=== PATIENT | female | born 1945 | race Caucasian/White ===

== ENCOUNTER 2019-11-15 12:23 | Outpatient (CLI) | payer MEDICARE, OTHER, SELFPAY ==
--- NOTE | 2019-11-15 12:41 | CT_ITS ---
WS: [id number] CT ABDOMEN AND PELVIS WITH CONTRAST HISTORY: ACUTE DIVERTICULITIS TECHNIQUE: Imaging performed of the abdomen and pelvis with IV contrast. Single phase imaging of the abdomen. Coronal and sagittal reformats are submitted. All CT scans at [facility] use at least one of these dose optimization techniques: automated exposure control; mA and/or kV adjustment per patient size (includes targeted exams where dose is matched to clinical indication); or iterativ e reconstruction. IV CONTRAST: Omnipaque 300; 95 mL IV. Oral contrast: Yes. DLP: 1113.55 mGy.cm COMPARISON: 11/19/2015 Lower thorax: New small bilateral pleural effusions and mild haziness in the lower lung gao. Moder ately enlarged RIGHT heart chambers. LEFT atrial enlargement is also present. No pericardial effusion . Moderate size hiatal hernia. Liver/biliary system: Diffuse decreased attenuation throughout the liver. There is mild tricuspid reg urgitation into hepatic veins. Gallbladder: Contracted gallbladder. No stones identified. No bile duct dilatation. Pancreas: Mild atrophy of the pancreas. Spleen: Normal. Adrenal glands: Normal. Right kidney: Normal. Left kidney: Exophytic cyst from the upper pole measures 3.0 x 3.9 cm. No solid mass or obstruction. Aorta: Normal. Lymphadenopathy: None. Free fluid: None. GI tract: The appendix is normal. Numerous diverticula in the descending and sigmoid colon. There inga e very mild circumferential wall thickening throughout the colon in the region of the diverticula. Th ere is no significant inflammation to suggest an acute process. Abdominal wall: Unremarkable abdominal wall. No hernia. Pelvis: Beam hardening artifact through the pelvis secondary to the patient's RIGHT hip arthroplasty. No free fluid or adenopathy identified. Bones: Increase in lumbar lordosis. No osteoblastic or osteolytic bone disease. Moderate degenerative changes at the LEFT hip joint. Sclerosis and subchondral cystic changes on both sides of the joint. CT/CT abdomen pelvis w con* [id number] IMPRESSION: 1. Descending and sigmoid diverticulosis. No evidence for acute diverticulitis at this time. No abscess or acute inflammation. There is some very mild wall t hickening which is probably related to chronic diverticulosis. 2. Normal appendix. 3. Enlarged RIGHT heart and mild tricuspid regurgitation. 4. Small hiatal hernia. 5. New small bilateral pleural effusions. May be related to RIGHT heart failur e.
[2019-11-15 13:34] LABS: Blood Urea Nitrogen 9 mg/dL (8-23)
[2019-11-15] MEDS: iohexol 300 mg/mL 100 mL Btl IV (14:29)
[2019-11-15] MEDS: iohexol 300 mg/mL 50 mL Btl PO (14:30)
== END 2019-11-15 12:24 | disposition home or self-care (01) ==
LOC: RAD 12:37
PROVIDERS: Family Provider Family Medicine; PCP Family Medicine; Visit Provider Family Medicine
DX: K57.92 Diverticulitis of intestine, part unspecified, without perforation or abscess without bleeding (principal); I07.1 Rheumatic tricuspid insufficiency; K44.9 Diaphragmatic hernia without obstruction or gangrene; J90 Pleural effusion, not elsewhere classified
CPT/HCPCS: 36415; 74177; 82565; 84520

== ENCOUNTER → 2020-02-14 08:41 | Outpatient (BNVA) | payer MEDICARE, OTHER, SELFPAY | PROVIDERS: Family Provider Family Medicine; PCP Family Medicine; Visit Provider Orthopaedic Surgery | DX: M25.552 Pain in left hip (principal); M16.12 Unilateral primary osteoarthritis, left hip; Z96.641 Presence of right artificial hip joint | CPT/HCPCS: 73502 ==

== ENCOUNTER 2020-03-14 12:00 | Inpatient (IN) | payer MEDICARE, OTHER, SELFPAY ==
[2020-03-04 11:56] VITALS: BMI 28.8
--- NOTE | 2020-03-04 13:01 | ANES.PREANE2 ---
Pre-Anesthetic Assessment Pre-Anesthetic Assessment: Height/Weight: Height 1.75 m Weight 88.451 kg Proposed Procedure: Operation Date: 03/14/20 11:10 Proposed Procedures p Anterior Total Hip Arthroplasty(Left) - Madhu Estes DO Social: Social History: No alcohol and No tobacco Exam: Pre-Anes Outpt Exam: alert, oriented x 3 and clear to auscultation bilaterally Additional Exam Findings (including area of procedure): afib Airway: Submandibular: WNL Cervical ROM: WNL MP: 2 Dentition: Other (teeth ok) History/ROS: No significant history except as noted Pulmonary: Pulmonary: None reported CV/HEM: CV/HEM: Afib and HTN : : None reported Hepatic: Hepatic: None reported GI: GI: GERD (occ) Metabolic: Metabolic: Thyroid Musc/skel: Musc/skel: OA/DJD Neuropsych: Neuropsych: None reported Anesthetic Plan: ASA status: 3 Anesthesia: Anesthesia Evaluation and General Risk of > 500 ml blood loss (7ml/kg in children): Yes, adequate IV access and fluids planned PFSH Anesthesia PFSH: Medical History Atrial fibrillation Hypertension Hypothyroidism Primary osteoarthritis of left hip Surgical History History of total right hip arthroplasty Family History Mother CAD (coronary artery disease) Hyperlipidemia Hypertension Brother Cancer Father Hypertension Denies family history of Diabetes Clotting disorder Dementia Psychiatric illness Chronic kidney disease (CKD) Suicide Anesthesia complication Bleeding disorder Family history of premature coronary artery disease Lung disease Stroke Data Anesthesia Cardiac Studies: No Data to Display
[2020-03-04 13:07] LABS: Add Urine Microscopic? NO
[2020-03-04 13:18] LABS: Basophils # 0.1 10^3/uL (0.0-0.1); Basophils % 1.3 %; Eosinophils # 0.1 10^3/uL (0.0-0.8); Eosinophils % 3.6 %; Hemoglobin 13.4 g/dL (11.5-15.3); Lymphocytes # 1.1 10^3/uL (0.8-4.8); Lymphocytes % 28.9 %; Mean Corpuscular HGB Conc 31.9 g/dL (30.0-36.0); Mean Corpuscular Hemoglobin 29.4 pg (28.0-34.0); Mean Corpuscular Volume 92.1 fL (81-99); Mean Platelet Volume 10.2 fL (7.4-10.4); Monocytes # 0.4 10^3/uL (0.2-0.9); Monocytes % 9.6 %; Neutrophils # 2.2 10^3/uL (1.8-7.7); Neutrophils % 56.3 %; Nucleated Red Blood Cells % 0 %; Platelet Count 205 10^3/cmm (130-400); Red Blood Count 4.56 10^6/uL (4.1-5.3); Red Cell Distribution Width 13.6 % (12.1-15.1); White Blood Count 3.9 10^3/uL (4.0-10.0)
[2020-03-04 13:23] LABS: Bilirubin Urine Neg (NEGATIVE); Blood Urine Neg (Negative); Glucose Urine UA Norm (Normal); Ketones Urine Negative (Negative); Leukocyte Esterase Urine Negative (Negative); Nitrate Urine Negative (Negative); Protein Urine Neg (Negative); Specific Gravity, Urine 1.005 (1.005-1.030); Urine Appearance Clear (CLEAR); Urine Color Straw (Yellow); Urobilinogen Urine Norm (Negative); pH Urine 7 (5-7)
[2020-03-04 13:26] LABS: INR 1.13 (0.8-1.2); Partial Thromboplastin Time 31.2 SECONDS (23.9-36.7)
[2020-03-04 13:33] LABS: Alanine Aminotransferase 19 U/L (0-33); Albumin Level 4.2 g/dL (3.5-5.2); Alkaline Phosphatase 93 IU/L (35-105); Anion Gap 16.2 (5-19); Aspartate Amino Transferase 24 U/L (0-32); Blood Urea Nitrogen 6 mg/dL (8-23); Calcium 9.2 mg/dL (8.5-10.5); Carbon Dioxide 22 mmol/L (22-29); Chloride 103 mmol/L (98-107); Glucose 92 mg/dL (65-115); Osmolality Calculated 279 mOsm/kg (285-295); Potassium 4.2 mmol/L (3.5-5.1); Sodium 137 mmol/L (136-145); Total Bilirubin 0.4 mg/dL (0.15-1.2); Total Protein 7.2 g/dL (6.6-8.7)
[2020-03-14] VITALS (19 sets, daily range): BP systolic 103–160; BP diastolic 59–96; PULSE 85–104; RESP 14–20; TEMP 35.7–36.7; O2SAT 94–100
--- NOTE | 2020-03-14 | XRR_ITS ---
PROCEDURE INFORMATION: Exam: XR Left Hip with Pelvis when Performed fluoroscopic images x2 Exam date and time: 03/14/2020 1:40 PM Age: 74 years old Clinical indication: Condition or disease; Joint replacement status; Left; Prior surgery; Surgery type: Thr; Additional info: Orif hip TECHNIQUE: Imaging protocol: XR Left hip with pelvis when performed. Fluoroscopic images x2 Views: 2 or 3 views. COMPARISON: CR XR hip LT 2-3V wo/w pel* [id number] 02/14/2020 8:45 AM FINDINGS: Bones/joints: Two fluoroscopic images demonstrate total hip arthroplasty without acute fracture or dislocation. Postoperative changes in the soft tissues. Soft tissues: See Bones/joints finding. XR/XR hip LT 2-3V wo/w pel* [id number] IMPRESSION: Two fluoroscopic images demonstrate total hip arthroplasty without acute fracture or dislocation. Postoperative changes in the soft tissues. DLP(mGy): 6.23. Fluoroscopic time 48.9 seconds.
--- NOTE | 2020-03-14 | SCC_ITS ---
Procedure Done: Left total thip arthroplasty via direct anterior approach 48.9 seconds of fluoroscopic guidance, for a cumulative dose of 6.23 mGy, was provided to Dr. Estes by the radiology department. C-arm images of the LEFT hip were saved for the patient's permanent record. SHREYAS
[2020-03-14] MEDS: sodium chloride 0.9% 1,000 ML 30 ML IV (07:05)
[2020-03-14] MEDS: gabapentin 300 mg Capsule PO (07:06)
[2020-03-14] MEDS: CELEcoxib 200 mg Capsule 400 MG PO (07:06)
--- NOTE | 2020-03-14 07:20 | W.PM.OPSUD ---
Surgery/Procedure H&P Update DATE OF PROCEDURE: March 14, 2020 DATE H&P PERFORMED: 02/14/20 H&P UPDATE INFORMATION: I have reviewed H&P completed within last 30 days and I have examined patient prior to procedure PREOP DIAGNOSIS: DJD left hip PRIMARY INDICATION FOR PROCEDURE: symptomatic djd left hip PLANNED PROCEDURE: Operation Date: 03/14/20 08:00 Proposed Procedures p Anterior Total Hip Arthroplasty(Left) - Madhu Estes DO
--- NOTE | 2020-03-14 07:22 | P.OP_ITS ---
Operative Report Date of procedure: March 14, 2020 Pre-op Diagnosis: DJD left hip Post-op diagnosis: same Post-op Findings: satisfactory placement of implants w/o apparent complication Procedure Done: Left total hip arthroplasty via direct anterior approach Specimens removed/disposition: left femoral head and neck Surgeon: Madhu Estes Anesthesia: General Estimated blood loss (mL): 500 IV fluids (mL): 1,300 Urine output (mL): 600 Complications: none Findings: Advanced DJD left hip Condition: stable Disposition: PACU Brief History: 74 year old white female with progressive disabling left hip pain due to degenerative arthritis. At this time she's failed conservative treatment. She is attended the [facility] joint class. All of her questions and concerns were answered. She is aware the risks of total hip art hroplasty surgery include aren't limited to: Infection, limb length inequality, instability of hip, loosening about prosthesis, failure to relieve all pain, nerve/blood vessel/tendon injury, potential for fractures about the prosthesis that could lead to need for revision surgery. Medical complications can include blood clots, heart attack, stroke and risks up to and including . Potential need for transfusion of blood products during or after surgery and associated risks were discussed. All questions are answered patient agreeable to proceed with surgery. Procedure: 1.5 g vancomycin 2 g ancef Spike implants Accolade 2 C 132? neck angle hip stem size 6 2 packages of low-viscosity cement with tobramycin Biolox delta ceramic femoral head 36 mm outer diameter 0 mm neck length Trident X30 degree polyethylene insert for code E 0 egree Trident to trititanium cluster hole acetabular shell 56 mm outer diameter alpha code E 6.5 mm low-profile torx screw 6.5 mm x 30 mm Patient identified. Surgical site signed. Surgical permit signed. Patient received 1.5 g Vancomycin and 2 g of Ancef IV for surgical prophylaxis. She was taken to the operating room. She was placed under general anesthesia. She was then transferred to the Flanagan table and positioned for left hip surgery via direct anterior approach. The patient was then sterilely prepped and draped usual fashion. She received 1 g of TXA intravenously for hemostasis. A 12 cm skin incision was made with a #10 blade 2 fingerbreadths lateral to and 2 fingerbreadths distal to the anterior superior iliac spine. Full-thickness skin flaps were made down to the level of the fascia overlying the tensor fascia emily muscle. Skin edge bleeders were coagulated with electrocautery. Using electrocautery the fascia overlying the tensor fascia emily muscle was incised and with finger dissection the plane between the tensor fascia emily muscle and the sartorius muscle superficially and the tensor fascia emily and the rectus femoris muscle deeply was developed retractors were placed about the superior and inferior aspects of the joint capsule about the femoral neck. Circumflex vessels were identified and coagulated with electrocautery and then divided with electrocautery. Using a deep knife a Z-shaped capsular incision was made beginning superior and laterally on the femoral head, then obliquely in the midline of the femoral neck and then medially about the base of the femoral neck. Anterior capsulectomy was performed after further releases were performed medially and laterally about the base of the femoral neck. An oscillating saw was used cut the femoral neck. The femoral head was removed using a T-handle corkscrew the femoral head was removed. The femoral head was sized at approximately 55 mm in diameter. Labral tissue was removed using a deep knife and a Rongeur was used to remove remnants of the ligamentum teres. The acetabulum was reamed up to a size 56 reamer using fluoroscopic assistance. A 56 mm acetabular shell was inserted and impacted into place using fluoroscopy to insert the cup at approximately with 40 degrees of hip abduction and 10 degrees of anteversion. The cup was additionally was secured with a 6.5 x 30 mm cancellous screw. The 56mm polyethylene liner with 36 mm inner diameter was inserted and impacted into position. The femur was now prepared by repositioning the limb and extension, adduction and external rotation using the spar of the Flanagan table. Retractors were placed about the proximal femur. Soft tissue releases about the proximal femur were performed circumferentially. A hook was then attached to the Flanagan table and the femur was elevated within the wound. The cut surface of the femur was then prepared with a motorized bur followed by a rat tail rasp. We began with the starter broach and up to a size 6 broach. calcar planing was then performed. We then placed a standard offset neck with a trial 36 mm diameter head with a +0 mm neck offset.Fluoroscopic imaging showed that the left hip was equal to the right hip with equal offset compared to the opposite operated hip. The hip was dislocated and trial components were removed. Cement was mixed. A distal cement restrictor was placed. The femoral canal was filled with cement. The actual size 6 stem was then inserted and the cement allowed to harden. a repeat trial reduction was perf with the actual cemented stem and placed with a standard offset neck. Once again offset and limb length were templated and found and the actual ceramic head was applied and impacted in position Fluoroscopic images demonstrated that the hip was reduced and no apparent complications such as fracture were observed. The wound was irrigated with Betadine-containing saline and antibiotic containing saline solution. FloSeal was placed in the wound for hemostasis. Vancomycin powder 1 g was placed in the wound for additional antimicrobial prophylaxis. A large Hemovac drain was placed from inside out. The patient received 1 g of TXA iintravenously for additional hemostasis The fascia of the tensor fascia emily muscle was then closed with a combination of interrupted #2 permanent sutures along with a barbed suture. The skin was closed in layers with the ultimate layer being a running Monocryl subcuticular suture followed by Steri-Strips and Dermabond on skin. Sterile dressings were applied. The patient was then aroused from general anesthesia and transferred to the recovery room in stable and satisfactory condition. At the end of the surgical procedure all counts were correct. The patient tolerated the procedure well.
--- NOTE | 2020-03-14 09:01 | SUR.OPER ---
called and updated on surgical progress.
--- NOTE | 2020-03-14 10:13 | SUR.OPER ---
03/14/20 1005 called and updated on surgical progress.
[2020-03-14] MEDS: vancomycin 1,000 MG SDV 1000 MG XX (10:26)
[2020-03-14] MEDS: neomycin-poly-bacitracin oint 28 gm 1 APPLIC TOPICAL (10:33)
--- NOTE | 2020-03-14 11:15 | XRR_ITS ---
PROCEDURE INFORMATION: Exam: XR Left Hip with Pelvis when Performed Exam date and time: 03/14/2020 11:54 AM Age: 74 years old Clinical indication: Condition or disease; Joint replacement status; Prior surgery; Surgery date: Post-operative (0-2 days); Surgery type: Post op left thr TECHNIQUE: Imaging protocol: XR Left hip with pelvis when performed. Views: 2 or 3 views. COMPARISON: CR XR hip LT 2-3V wo/w pel* [id number] 02/14/2020 8:45 AM FINDINGS: Bones/joints: Hip arthroplasty without evidence of acute fracture or dislocation. No paralleling lucencies. Soft tissues: Postoperative changes in the soft tissues. Surgical drain. XR/XR hip LT 2-3V wo/w pel* [id number] IMPRESSION: No acute fracture or dislocation status post hip arthroplasty.
[2020-03-14] MEDS: HYDROmorphone 1 mg/mL INJ 1 mL 0.5 MG IVP (13:30)
[2020-03-14] MEDS: sodium chloride 0.9% 1,000 ML 100 ML IV ×2 (13:31→22:33)
[2020-03-14] MEDS: chlorhexidine gluconate 0.12% Btl 473 mL 30 ML MUCOUS MEM ×3 (13:32→21:19)
[2020-03-14] MEDS: acetaminophen 500 mg Tablet 1000 MG PO ×2 (15:05→22:32)
[2020-03-14] MEDS: mupirocin oint 22 gm 1 APPLIC NASAL (17:48)
[2020-03-14] MEDS: metoprolol succinate ER (24 HR) 25 mg Tablet 37.5 MG PO (17:49)
[2020-03-14] MEDS: calcium carbonate 500 mg Chew Tablet 1000 MG PO (17:49)
[2020-03-14] MEDS: iron polysaccharide complex 150 mg Capsule PO (17:49)
[2020-03-14] MEDS: sennosides-docusate Tablet 2 TAB PO (17:50)
[2020-03-14] MEDS: ketorolac 30 mg/mL INJ 15 MG IVP (18:48)
[2020-03-14] MEDS: trazodone 50 mg Tablet PO (21:19)
[2020-03-14] MEDS: apixaban 5 mg Tablet 2.5 MG PO (22:32)
[2020-03-14] MEDS: vancomycin 1,000 MG in sodium chloride 0.9% 250 ML 250 MG IV (23:55)
[2020-03-15] VITALS (8 sets, daily range): BP systolic 97–126; BP diastolic 61–83; PULSE 86–111; RESP 12–20; TEMP 36.4–37; O2SAT 94–98
[2020-03-15 03:46] LABS: Basophils % 0.1 %; Hematocrit 33.4 % (37.0-47.0); Hemoglobin 10.8 g/dL (11.5-15.3); Lymphocytes # 0.7 10^3/uL (0.8-4.8); Lymphocytes % 9.1 %; Mean Corpuscular HGB Conc 32.3 g/dL (30.0-36.0); Mean Corpuscular Hemoglobin 30.3 pg (28.0-34.0); Mean Corpuscular Volume 93.8 fL (81-99); Mean Platelet Volume 10.1 fL (7.4-10.4); Monocytes # 0.6 10^3/uL (0.2-0.9); Monocytes % 8.1 %; Neutrophils # 6.2 10^3/uL (1.8-7.7); Neutrophils % 82.4 %; Nucleated Red Blood Cells % 0 %; Platelet Count 196 10^3/cmm (130-400); Red Blood Count 3.56 10^6/uL (4.1-5.3); Red Cell Distribution Width 13.8 % (12.1-15.1); White Blood Count 7.6 10^3/uL (4.0-10.0)
[2020-03-15 04:19] LABS: Anion Gap 14.3 (5-19); Blood Urea Nitrogen 9 mg/dL (8-23); Calcium 8.8 mg/dL (8.5-10.5); Carbon Dioxide 23 mmol/L (22-29); Chloride 104 mmol/L (98-107); Glucose 141 mg/dL (65-115); Osmolality Calculated 282 mOsm/kg (285-295); Potassium 4.3 mmol/L (3.5-5.1); Sodium 137 mmol/L (136-145)
[2020-03-15] MEDS: acetaminophen 500 mg Tablet 1000 MG PO ×3 (06:04→22:00)
--- NOTE | 2020-03-15 07:06 | P.PN_ITS ---
Subjective Subjective: Interval history: 74 y/o white female POD #1 s/p left total hip arthroplasty via direct anterior approach Vitals/I&O/Wt Last Vital Signs Temp 97.8 F 03/15/20 01:39 Pulse 92 03/15/20 01:39 Resp 18 03/15/20 01:39 BP 106/70 03/15/20 01:39 Pulse Ox 94 03/15/20 01:39 03/14/20 03/15/20 03/15/20 22:59 06:59 14:59 Intake Total 1913.333 / 3833.333 250 / 4083.333 Output Total 1550 / 3675 1430 / 5105 Balance 363.333 / 158.333 -1180 / -1021.667 Physical Exam Narrative: EXAM NARRATIVE: 74-year-old white female in no acute distress. She is alert and cooperative Vital signs are stable she is afebrile. She is able to speak in complete sentences. No jugular venous distention. No calf tenderness bilaterally. Her drain was removed at the bedside from her left hip wound without difficulty. Urinary Catheter Management^: Solano: Cath Placed During This Visit: yes, but has since been removed by the nurse Reason for Continuing Indwelling Catheter: Decision to DC Catheter Urinary Catheter Date of Insertion: 03/14/20 Urinary Catheter Time of Insertion: 08:25 Date Urinary Catheter Removed: 03/15/20 Time Urinary Catheter Discontinued: 06:17 Data : 03/16/20 03:05 03/15/20 03:05 A&P Assessment and plan (1) History of total left hip arthroplasty: Finish perioperative antibiotics VTE prophylaxis, pharmacologic, sequential compression devices, mobilization?highest risk Pain control Remove drain from operative site with dressing change Remove Solano catheter Weight bearing status: Weight bearing as tolerated on operative limb Anterior hip precautions Monitor hemoglobin and hematocrit Discharge planning-home with home health Status: Acute Attestations Medical Necessity Statement*: Patient requires continued inpatient level care due to age, multiple medical comorbidities and s/p mutliple joint replacements Coding Level of Care Code Acute Nuclear Chemistry Technician for Travis Valladares Diagnoses History of total left hip arthroplasty Z96.642
[2020-03-15] MEDS: sennosides-docusate Tablet 2 TAB PO ×3 (09:21→17:47)
[2020-03-15] MEDS: metoprolol succinate ER (24 HR) 25 mg Tablet 37.5 MG PO ×2 (09:21→17:48)
[2020-03-15] MEDS: levothyroxine 125 mcg Tablet PO (09:21)
[2020-03-15] MEDS: apixaban 5 mg Tablet 2.5 MG PO ×2 (09:22→17:46)
[2020-03-15] MEDS: cholecalciferol (vitamin D3) 1,000 unit Tablet 1000 UNIT PO (09:23)
[2020-03-15] MEDS: iron polysaccharide complex 150 mg Capsule PO ×2 (09:23→17:46)
[2020-03-15] MEDS: magnesium oxide 400 mg tablet PO (09:23)
[2020-03-15] MEDS: multivitamin therapeutic Tablet 1 TAB PO (09:23)
[2020-03-15] MEDS: calcium carbonate 500 mg Chew Tablet 1000 MG PO ×2 (09:23→17:48)
[2020-03-15] MEDS: chlorhexidine gluconate 0.12% Btl 473 mL 30 ML MUCOUS MEM ×3 (09:30→21:53)
[2020-03-15] MEDS: mupirocin oint 22 gm 1 APPLIC NASAL (09:30)
[2020-03-15] MEDS: sodium chloride 0.9% 1,000 ML 100 ML IV (09:30)
--- NOTE | 2020-03-15 11:18 | PC.CHAP ---
Pastoral Care Encounter/Spiritual Assessment Type of Contact [] Declined food and beverage operations manager visit [] Patient/Family/Request visit [] Outpatient visit [] Follow-up visit [] Physician referral [] Code/Alert [x] Routine visit [] Staff referral [] Actively dying [] Patient sleeping [] Family support [] [] Out of room [] Palliative care [] [] Receiving care in room [] Pre-surgical visit [] Trauma [] Long length of stay [] ICU visit [] Other: Relational/Emotional Strength [] Patient feels connected with others/family/visitors/staff [] Distress [] Loneliness/isolation [] Abandonment Spirituality of Patient [] Person of Ann [] Attends Christian of their Ann [] Believes in Prayer [] Reads Bible or Mu-Ism materials [] There are Spiritual issues to be addressed Platform Builder Interventions [x] Prayer [x] Active listening [x] Non-anxious presence [x] Spiritual/emotional support [] Crisis/trauma care [] Spiritual counseling [] Bereavement support [] Provided bereavement packet [] Provided Bible/devotional materials [] Provided toy/stuffed animal, coloring book to patient or family member [] Provided Communion [] Anointing/[place] [] Salvation [x] Completed spiritual assessment [] Other: Impact on Illness or Injury [] Angry [] Fearful [] Anxious [] Often cries [] Exhaustion [] Unable to work [] Unable to attend gnosticism [] Unable to walk/stand [] Unable to read [] Unable to drive [] Unable to eat/drink [] Unable to sleep [] Unable to be with family [] Patient intubated [] Other: Summary feeling stronger- ready for physical therapy Time spent with patient 10 min
--- NOTE | 2020-03-15 12:14 | ANE.PACU2 ---
Inpatient post-anesthesia follow up: Airway intact: Yes Vital signs: Temperature 98.4 F Pulse Rate 111 Respiratory Rate 16 Blood Pressure 126/83 Pulse Oximetry 98 Oxygen Delivery Me thod [ Room Air Current Rate & Del breann] Oxygen Delivery Me thod Room Air Oxygen Flow Rate 2 Fraction of Inspir ed Oxygen Hydration adequate: Yes Nausea and vomiting: No Pain level: 3 Mental status: Baseline
[2020-03-15] MEDS: trazodone 50 mg Tablet PO (21:52)
--- NOTE | 2020-03-16 03:37 | PC.NURSE ---
pt is doing exceptionally well this night with minimal to no pain, only slight burning at incision site that has now subsided. Site is also without visible drainage to dressing. Neurovas checks WNL with normal pedal pulses. Pt up to BSC and did very well with minimal assistance but did state the hip was more sore with movement.
[2020-03-16 03:38] LABS: Basophils % 0.6 %; Eosinophils # 0.1 10^3/uL (0.0-0.8); Eosinophils % 2.4 %; Hematocrit 30.8 % (37.0-47.0); Hemoglobin 9.6 g/dL (11.5-15.3); Lymphocytes # 1.1 10^3/uL (0.8-4.8); Lymphocytes % 21.6 %; Mean Corpuscular HGB Conc 31.2 g/dL (30.0-36.0); Mean Corpuscular Hemoglobin 29.5 pg (28.0-34.0); Mean Corpuscular Volume 94.8 fL (81-99); Mean Platelet Volume 10.5 fL (7.4-10.4); Monocytes # 0.5 10^3/uL (0.2-0.9); Monocytes % 9.8 %; Neutrophils # 3.3 10^3/uL (1.8-7.7); Neutrophils % 65.2 %; Nucleated Red Blood Cells % 0 %; Platelet Count 145 10^3/cmm (130-400); Red Blood Count 3.25 10^6/uL (4.1-5.3); Red Cell Distribution Width 14.3 % (12.1-15.1); White Blood Count 5.1 10^3/uL (4.0-10.0)
[2020-03-16 04:00] VITALS: BP 123/78; PULSE 82; RESP 18; TEMP 36.4; O2SAT 96
--- NOTE | 2020-03-16 07:51 | PM.DCS ---
Discharge Providers Date of Admission: 03/14/20 12:00 Date of Discharge: March 16, 2020 Attending Provider at Admission: Madhu Estes DO Attending Provider at Discharge: Madhu Estes DO Primary Care Provider: Iraj Tong MD Diagnoses at Discharge Discharge Diagnosis (1) History of total left hip arthroplasty: Status: Acute Problem details: DOS: 03/14/2020 Reason for Visit Reason for Visit: Brief History: 74-year-old white female with progressive disabling bilateral hip pain. She's previously undergone right total hip arthroplasty and is done well. She is admitted for elective left total hip arthroplasty for advanced degenerative joint disease of her right hip as is evidenced by plain film radiographs. She has groin pain with range of motion of her hip. Patient is aware of the risk, benefits and potential complications of total hip arthroplasty. All of her questions have been answered. She is agreeable to proceed with surgery. Hospital Course Hospital Course: Patient was taken to surgery where under general anesthetic she underwent elective left total hip arthroplasty. She received both cefazolin and vancomycin for preoperative and postoperative antibiotic prophylaxis. She is normally on Eliquis for atrial fibrillation. This was stopped prior to surgery she was started on a reduced dose of Eliquis postoperatively for VTE prophylaxis along with sequential compression devices immobilization. A Solano catheter was placed at the time of surgery to monitor input and output. This was discontinued on postoperative day 1. A drain was placed at the time of surgery and this was discontinued on postoperative day 1. Vital signs been stable patient is been afebrile. Her pain is been well controlled. She's been able to participate with physical therapy. She had some complaints of nausea related to taking oral pain medication which is typical for this patient. She was ambulating with a walker. Weightbearing as tolerated with anterior hip precautions left hip. Physical Exam Narrative: EXAM NARRATIVE: 74-year-old white female stress. She is alert and cooperative. Lungs are clear to auscultation She has no jugular venous distention. Peripheral pulses are 2+. Heart is regular rate. Abdomen is soft and nontender. Bowel sounds are active. Her incision is intact with no drainage. There is mild drainage at the drain site but no active bleeding. No calf tenderness bilaterally. Urinary Catheter Management^: Solano: Cath Placed During This Visit: yes, but has since been removed by the nurse Reason for Continuing Indwelling Catheter: Decision to DC Catheter Urinary Catheter Date of Insertion: 03/14/20 Urinary Catheter Time of Insertion: 08:25 Date Urinary Catheter Removed: 03/15/20 Time Urinary Catheter Discontinued: 06:30 Discharge Data Data Completed and Pending: Completed Studies During Hospitalization Category Date Time Status XR hip LT 2-3V wo /w pel* [id number] Rout ine Exams 03/14/20 Completed XR hip LT 2-3V wo /w pel* [id number] Rout ine Exams 03/14/20 11:15 Completed Pending at discharge Category Date Time Status CBC Auto Diff [Co mplete Blood Count w/Auto] AM LABS Lab 03/17/20 04:00 Ordered Leukocyte Reduced RBC Routine Lab 03/14/20 06:50 Results Type and Screen R outine Lab 03/14/20 06:50 Results Pathology: Surgic al [PTH] Routine Pth 03/14/20 10:48 Received Labs from last 24 hours 03/16/20 03:05 WBC 5.1 RBC 3.25 L Hgb 9.6 L Hct 30.8 L MCV 94.8 MCH 29.5 MCHC 31.2 RDW 14.3 Plt Count 145 MPV 10.5 H Neut % (Auto) 65.2 Lymph % (Auto) 21.6 [place] % (Auto) 9.8 Eos % (Auto) 2.4 Baso % (Auto) 0.6 Neut # (Auto) 3.3 Lymph # (Auto) 1.1 [place] # (Auto) 0.5 Eos # (Auto) 0.1 Baso # (Auto) 0.0 Nucleated RBC % (a uto) 0 Nucleated RBCs # 0.0 Vitals: Last Vital Signs Temp 97.6 F 03/16/20 04:00 Pulse 82 03/16/20 04:00 Resp 18 03/16/20 04:00 BP 123/78 03/16/20 04:00 Pulse Ox 96 03/16/20 04:00 Discharge Plan Discharge Patient Disposition: Home Health Service Condition: Stable Prescriptions: New hydrocodone-acetaminophen 7.5-325 mg tablet 1 tab PO Q4H PRN (Reason: pain) Qty: 40 RF: 0 cefuroxime axetil 500 mg tablet 500 mg PO BID 7 Days Qty: 14 RF: 0 Zofran 4 mg tablet 4 mg PO Q6H PRN (Reason: nausea and vomiting) Qty: 20 RF: 1 Continued magnesium oxide 400 mg magnesium capsule 400 mg PO DAILY RF: 0 tramadol 50 mg tablet 50 mg PO Q8H PRN (Reason: Pain) RF: 0 trazodone 50 mg tablet 50 mg PO DAILY RF: 0 cholecalciferol (vitamin D3) 25 mcg PO DAILY RF: 0 levothyroxine [Synthroid] 125 mcg tablet 125 mcg PO DAILY RF: 0 metoprolol succinate 25 mg capsule,sprinkle,ER 24hr 37.5 mg PO BID RF: 0 meclizine 25 mg tablet 25 mg PO BID PRN (Reason: dizziness) RF: 0 multivitamin Tablet 1 tab PO DAILY RF: 0 amlodipine 2.5 mg Tablet 2.5 mg PO DAILY PRN (Reason: BLOOD PRESSURE) RF: 0 Held Eliquis 5 mg tablet 5 mg PO BID RF: 0 Hold Instructions: Resume on 03/18/20. Take one 5 mg pill of Eliquis tomorrow on Wednesday03/17/2020 Then resume 5 mg po bid on Wednesday03/18/2020 Discharge Orders: Discharge Order (Routine); Ordered 03/16/20 Ordered By: Madhu Estes Referrals: Madhu Estes DO [Physician] - 03/28/20 10:00 am (You have a follow up appointment on March 28 at 10:00am.) Iraj Tong MD [Primary Care Provider] - (Please call patient at home with a hospital follow up in 4-7 days. Faxed information to Clinic.) Discharge Diet: Usual diet Discharge Activity: Increase activity as tolerated and Use walker/crutches as instructed Patient Instructions: Cefuroxime (By mouth), Hydrocodone/Acetaminophen (By mouth), Ondansetron (By mouth), Total Hip Replacement (DC) Activity Restrictions/Additional Instructions: Telfa island dressing to anterior hip incision and to drain site until no drainage. When no drainage from incision or drain site, no dressing is required. At drain site please apply antibiotic ointment. Patient may shower followed by dressing change. Weightbearing as tolerated right lower extremity with anterior hip precautions Therapy at skilled at home should work on: Weightbearing as tolerated right lower extremity with anterior hip precautions may transition from walker to cane as tolerated gait/xfer stair climbing may perform hip strengthening Discharge Date/Time: 03/16/20 10:35 Discharge Attestations Time Spent in Discharge Care*: greater than 30 min Status at Discharge: Cognitive status at discharge: cognitively intact, Behavioral status at discharge: cooperative, Functional status at discharge: uses cane/walker Overall status at discharge: patient is progressing back to baseline Quality Metrics Clinical Quality Measures During this hospital stay, did patient experience: None Coding Level of Care Code Acute Director Internal Audit for Travis Valladares Diagnoses History of total left hip arthroplasty Z96.642
[2020-03-16] MEDS: sennosides-docusate Tablet 2 TAB PO (07:54)
[2020-03-16] MEDS: calcium carbonate 500 mg Chew Tablet 1000 MG PO (07:54)
[2020-03-16] MEDS: iron polysaccharide complex 150 mg Capsule PO (07:55)
[2020-03-16] MEDS: magnesium oxide 400 mg tablet PO (07:55)
[2020-03-16] MEDS: multivitamin therapeutic Tablet 1 TAB PO (07:55)
[2020-03-16] MEDS: levothyroxine 125 mcg Tablet PO (07:56)
[2020-03-16] MEDS: metoprolol succinate ER (24 HR) 25 mg Tablet 37.5 MG PO (07:56)
[2020-03-16] MEDS: acetaminophen 500 mg Tablet 1000 MG PO (07:57)
[2020-03-16] MEDS: cholecalciferol (vitamin D3) 1,000 unit Tablet 1000 UNIT PO (07:58)
[2020-03-16] MEDS: apixaban 5 mg Tablet 2.5 MG PO (07:58)
[2020-03-16 08:00] VITALS: BP 123/78; PULSE 91; RESP 16; TEMP 36.9; O2SAT 94
[2020-03-16] MEDS: chlorhexidine gluconate 0.12% Btl 473 mL 30 ML MUCOUS MEM (08:01)
[2020-03-16] MEDS: mupirocin oint 22 gm 1 APPLIC NASAL (08:01)
[2020-03-16] MEDS: cefUROXime 250 mg Tablet 500 MG PO (09:32)
[2020-03-16 09:36] VITALS: BP 123/78; PULSE 91; RESP 16; TEMP 36.9; O2SAT 94
== END 2020-03-16 10:35 | disposition home health service (06) | DRG 470 ==
LOC: MEDSURG 12:14
PROVIDERS: Admitting Provider Orthopaedic Surgery; PCP Family Medicine; Visit Provider Orthopaedic Surgery
PROC: 0SRB0J9 Replacement of Left Hip Joint with Synthetic Substitute, Cemented, Open Approach (ICD-10-PCS; CPT 27130; principal; 2020-03-14 08:00)
DX: M16.12 Unilateral primary osteoarthritis, left hip (principal); Z96.641 Presence of right artificial hip joint; I48.91 Unspecified atrial fibrillation; I10 Essential (primary) hypertension; K21.9 Gastro-esophageal reflux disease without esophagitis; E03.9 Hypothyroidism, unspecified
CPT/HCPCS: 12345; 36415; 51702; 73502; 76000; 80048; 80053; 81003; 85025; 85610; 85730; 86850; 86900; 86920; 87641; 88304; 94664; 96365; 96375; 97110; 97116; 97162; 97165; 97530; C1713; C1776; C9290; J0131; J0690; J1100; J1170; J1580; J1885; J2001; J2370; J2405; J2704; J3010; J3370; J3490; J7030; J7050

== ENCOUNTER 2020-03-20 10:48 | Outpatient (CLI) | payer MEDICARE, OTHER, SELFPAY ==
[2020-03-20 11:05] LABS: Basophils % 0.8 %; Eosinophils # 0.2 10^3/uL (0.0-0.8); Eosinophils % 4.3 %; Hematocrit 31.4 % (37.0-47.0); Hemoglobin 9.8 g/dL (11.5-15.3); Lymphocytes # 0.9 10^3/uL (0.8-4.8); Lymphocytes % 22.3 %; Mean Corpuscular HGB Conc 31.2 g/dL (30.0-36.0); Mean Corpuscular Hemoglobin 29.5 pg (28.0-34.0); Mean Corpuscular Volume 94.6 fL (81-99); Mean Platelet Volume 9.8 fL (7.4-10.4); Monocytes # 0.6 10^3/uL (0.2-0.9); Monocytes % 14.6 %; Neutrophils # 2.3 10^3/uL (1.8-7.7); Neutrophils % 57.5 %; Nucleated Red Blood Cells % 0 %; Platelet Count 254 10^3/cmm (130-400); Red Blood Count 3.32 10^6/uL (4.1-5.3); Red Cell Distribution Width 14.1 % (12.1-15.1); White Blood Count 3.9 10^3/uL (4.0-10.0)
[2020-03-20 11:22] LABS: Anion Gap 15.2 (5-19); Blood Urea Nitrogen 6 mg/dL (8-23); Carbon Dioxide 26 mmol/L (22-29); Chloride 101 mmol/L (98-107); Glucose 97 mg/dL (65-115); Osmolality Calculated 282 mOsm/kg (285-295); Potassium 4.2 mmol/L (3.5-5.1); Sodium 138 mmol/L (136-145)
== END 2020-03-20 10:49 | disposition home or self-care (01) ==
LOC: LAB 10:53
PROVIDERS: PCP Family Medicine; Visit Provider Orthopaedic Surgery
DX: Z96.649 Presence of unspecified artificial hip joint (principal); M19.90 Unspecified osteoarthritis, unspecified site
CPT/HCPCS: 80048; 85025

== ENCOUNTER 2020-03-27 12:05 | Outpatient (CLI) | payer MEDICARE, OTHER, SELFPAY ==
[2020-03-27 12:41] LABS: Basophils % 0.6 %; Eosinophils # 0.1 10^3/uL (0.0-0.8); Eosinophils % 2.5 %; Hematocrit 30.2 % (37.0-47.0); Hemoglobin 9.5 g/dL (11.5-15.3); Lymphocytes # 0.8 10^3/uL (0.8-4.8); Lymphocytes % 17.7 %; Mean Corpuscular HGB Conc 31.5 g/dL (30.0-36.0); Mean Corpuscular Hemoglobin 30.2 pg (28.0-34.0); Mean Corpuscular Volume 95.9 fL (81-99); Mean Platelet Volume 9.1 fL (7.4-10.4); Monocytes # 0.4 10^3/uL (0.2-0.9); Monocytes % 7.6 %; Neutrophils # 3.37 10^3/uL (1.8-7.7); Neutrophils % 71.2 %; Nucleated Red Blood Cells % 0 %; Platelet Count 375 10^3/cmm (130-400); Red Blood Count 3.15 10^6/uL (4.1-5.3); Red Cell Distribution Width 14.4 % (12.1-15.1); White Blood Count 4.7 10^3/uL (4.0-10.0)
[2020-03-27 12:57] LABS: Alanine Aminotransferase 18 U/L (0-33); Albumin Level 3.6 g/dL (3.5-5.2); Alkaline Phosphatase 95 IU/L (35-105); Aspartate Amino Transferase 23 U/L (0-32); Blood Urea Nitrogen 6 mg/dL (8-23); Carbon Dioxide 25 mmol/L (22-29); Chloride 101 mmol/L (98-107); Globulin 3.2 g/dL (1.3-4.6); Glucose 81 mg/dL (65-115); Osmolality Calculated 277 mOsm/kg (285-295); Sodium 136 mmol/L (136-145); Total Bilirubin 0.3 mg/dL (0.15-1.2); Total Protein 6.8 g/dL (6.6-8.7)
== END 2020-03-27 12:06 | disposition home or self-care (01) ==
LOC: LAB 12:09
PROVIDERS: PCP Family Medicine; Visit Provider Orthopaedic Surgery
DX: Z47.1 Aftercare following joint replacement surgery (principal)
CPT/HCPCS: 80053; 85025

== ENCOUNTER → 2020-03-28 09:59 | Outpatient (BNVA) | payer MEDICARE, OTHER, SELFPAY | PROVIDERS: PCP Family Medicine; Visit Provider Orthopaedic Surgery | DX: Z96.642 Presence of left artificial hip joint (principal) | CPT/HCPCS: 73502 ==

== ENCOUNTER → 2020-07-01 13:09 | Outpatient (BNVA) | payer MEDICARE, SELFPAY | PROVIDERS: PCP Family Medicine; Visit Provider Orthopaedic Surgery | DX: Z96.642 Presence of left artificial hip joint (principal) | CPT/HCPCS: 73502 ==

== ENCOUNTER → 2020-08-02 12:08 | Outpatient (BNVA) | payer MEDICARE, SELFPAY | PROVIDERS: PCP Family Medicine; Visit Provider Surgery | DX: R10.13 Epigastric pain (principal); R10.32 Left lower quadrant pain | CPT/HCPCS: 87635 ==

== ENCOUNTER 2020-08-06 06:51 | Day surgery (SDC) | payer MEDICARE, SELFPAY ==
[2020-08-02 13:44] VITALS: BMI 28.5
[2020-08-06 07:00] VITALS: BP 120/102; PULSE 80; RESP 18; TEMP 36.9; O2SAT 97
[2020-08-06] MEDS: sodium chloride 0.9% 1,000 ML 30 ML IV (07:18)
--- NOTE | 2020-08-06 07:22 | ANES.PREANE2 ---
Pre-Anesthetic Assessment Pre-Anesthetic Assessment: Height/Weight: Height 1.75 m Weight 87.543 kg Temp Pulse Resp BP Pulse Ox 98.4 F 80 18 120/102 97 08/06/20 07:00 08/06/20 07:00 08/06/20 07:00 08/06/20 07:00 08/06/20 07:00 Preop Diagnosis: gerd screening Proposed Procedure: Operation Date: 08/06/20 08:00 Proposed Procedures p 04729 [id number] egd/colon R10.13 epigastric pain R10.32 left lower quadrant pain(Not Applicable) - Bradley Newton MD s Colonoscopy(Not Applicable) - Bradley Newton MD Familial anesthetic complications: none Was Beta Nena taken within 24 hours: Yes Last intake: Intake Last Liquid Date 08/05/20 Last Liquid Time 19:00 Last Solid Date 08/04/20 Last Solid Time 20:00 Social: Social History: No alcohol and No tobacco Exam: Pre-Anes Outpt Exam: alert, oriented x 3, clear to auscultation bilaterally and regular rate & rhythm Airway: Cervical ROM: WNL MP: 2 Dentition: Full CV/HEM: CV/HEM: Afib (eliquis on wednesday) and HTN GI: GI: GERD Metabolic: Metabolic: Thyroid Anesthetic Plan: ASA status: 2 Anesthesia: MAC Risk of > 500 ml blood loss (7ml/kg in children): No Meds/Allergies Current Medications: Current Medications Generic Name Dose Route Start Last Admin Trade Name Freq PRN Reason Stop Dose Admin Sodium Chloride 1,000 mls @ 30 ml s/hr 08/06/20 07:00 08/06/20 07:18 Sodium Chloride 0.9% IV 30 mls/hr .Q24H KANDI Administration PFSH Anesthesia PFSH: Medical History Atrial fibrillation Atrial flutter History of diverticulosis Hypertension Hypothyroidism Primary osteoarthritis of left hip Surgical History H/O esophagogastroduodenoscopy H/O hernia repair History of total left hip arthroplasty DOS: 03/14/2020 History of total right hip arthroplasty Status post bilateral knee replacements Status post colonoscopy Family History Mother CAD (coronary artery disease) Hyperlipidemia Hypertension Brother Cancer Father Hypertension Denies family history of Diabetes Clotting disorder Dementia Psychiatric illness Chronic kidney disease (CKD) Suicide Anesthesia complication Bleeding disorder Family history of premature coronary artery disease Lung disease Stroke Social History Smoking and tobacco status: never smoked Alcohol intake: never Household members: spouse Marital status: Current occupational status: retired History of recent travel: No Data Anesthesia Cardiac Studies: No Data to Display
--- NOTE | 2020-08-06 07:35 | W.PM.OPSUD ---
Surgery/Procedure H&P Update DATE OF PROCEDURE: August 06, 2020 DATE H&P PERFORMED: 07/22/20 H&P UPDATE INFORMATION: I have reviewed H&P completed within last 30 days, I have examined patient prior to procedure and No changes to prior documentation PREOP DIAGNOSIS: gerd screening PLANNED PROCEDURE: Operation Date: 08/06/20 08:00 Proposed Procedures p [id number] egd/colon R10.13 epigastric pain R10.32 left lower quadrant pain(Not Applicable) - Bradley Newton MD s Colonoscopy(Not Applicable) - Bradley Newton MD
[2020-08-06 08:47] VITALS: BP 104/67; PULSE 76; RESP 18; TEMP 36.4; O2SAT 98
[2020-08-06 09:00] VITALS: BP 115/75; PULSE 77; RESP 18; O2SAT 98
--- NOTE | 2020-08-06 14:30 | ANE.PACU2 ---
Inpatient post-anesthesia follow up: Airway intact: Yes Vital signs: Temperature 97.6 F Pulse Rate 77 Respiratory Rate 18 Blood Pressure 115/75 Pulse Oximetry 98 Oxygen Delivery Me thod Room Air Oxygen Flow Rate 3 Fraction of Inspir ed Oxygen Hydration adequate: Yes Nausea and vomiting: No Pain level: 1 Mental status: Baseline
== END 2020-08-06 09:15 | disposition home or self-care (01) ==
PROVIDERS: PCP Family Medicine; Visit Provider Surgery
PROC: 0DJ08ZZ Inspection of Upper Intestinal Tract, Via Natural or Artificial Opening Endoscopic (ICD-10-PCS; CPT 43235; principal; 2020-08-06 08:00)
PROC: 0DJD8ZZ Inspection of Lower Intestinal Tract, Via Natural or Artificial Opening Endoscopic (ICD-10-PCS; CPT 45378; 2020-08-06 08:00)
DX: Z12.11 Encounter for screening for malignant neoplasm of colon (principal); K29.50 Unspecified chronic gastritis without bleeding; R10.13 Epigastric pain; D12.5 Benign neoplasm of sigmoid colon; R10.32 Left lower quadrant pain; I48.91 Unspecified atrial fibrillation; I10 Essential (primary) hypertension; E03.9 Hypothyroidism, unspecified; Z96.643 Presence of artificial hip joint, bilateral; Z96.653 Presence of artificial knee joint, bilateral; Z80.9 Family history of malignant neoplasm, unspecified; Z79.01 Long term (current) use of anticoagulants; K64.8 Other hemorrhoids; K62.89 Other specified diseases of anus and rectum; K59.09 Other constipation; K57.30 Diverticulosis of large intestine without perforation or abscess without bleeding; Z79.891 Long term (current) use of opiate analgesic
CPT/HCPCS: 12345; 43239; 45380; 88305; J2704; J7030

== ENCOUNTER 2021-05-31 18:18 | Outpatient (CLI) | payer MEDICARE, SELFPAY ==
--- NOTE | 2021-05-31 18:31 | XRR_ITS ---
PROCEDURE INFORMATION: Exam: XR Right Humerus Exam date and time: 05/31/2021 6:31 PM Age: 75 years old Clinical indication: Injury or trauma; Fall; Blunt trauma (contusions or hematomas); Arm, upper; Right; Additional info: Fall and injury TECHNIQUE: Imaging protocol: XR Right humerus. Views: 2 or more views. COMPARISON: CR Chest 1 [place] [id number] 12/30/2017 10:00 AM FINDINGS: Again noted are the arthritic changes involving the glenohumeral joint. No fracture is identified. The elbow joint is unremarkable. There is no acute bony destruction. XR/[place] [id number] IMPRESSION: No evidence of fracture.
--- NOTE | 2021-05-31 18:31 | XRR_ITS ---
PROCEDURE INFORMATION: Exam: XR Right Shoulder Exam date and time: 05/31/2021 6:31 PM Age: 75 years old Clinical indication: Injury or trauma; Fall; Blunt trauma (contusions or hematomas); Shoulder; Right TECHNIQUE: Imaging protocol: XR Right shoulder. Views: 2 or more views. COMPARISON: CR Chest 1 [place] [id number] 12/30/2017 10:00 AM FINDINGS: No acute fracture is identified. There are marked arthritic changes involving the glenohumeral joint. There are numerous intra-articular bodies. There are degenerative changes of the AC joint. XR/XR shoulder RT min 2V* [id number] IMPRESSION: 1. No evidence of fracture or dislocation. 2. Marked arthritic changes of the glenohumeral joint with numerous intra-articular bodies.
--- NOTE | 2021-05-31 18:31 | XRR_ITS ---
PROCEDURE INFORMATION: Exam: XR Right Ribs Exam date and time: 05/31/2021 6:31 PM Age: 75 years old Clinical indication: Injury or trauma; Fall; Rib area; Blunt trauma (contusions or hematomas); Additional info: Fall and injury TECHNIQUE: Imaging protocol: XR Right ribs. Views: 2 views. COMPARISON: CR Chest 1 [place] [id number] 12/30/2017 10:00 AM FINDINGS: The lung parenchyma is clear. There is no pleural effusion. There is no pneumothorax. There is no evidence of rib fracture. There is no bony destruction of the ribs. XR/XR ribs RT 2V* [id number] IMPRESSION: Unremarkable right ribs.
== END 2021-05-31 18:19 | disposition home or self-care (01) ==
PROVIDERS: PCP Family Medicine; Visit Provider Nurse Practitioner
DX: S49.91XA Unspecified injury of right shoulder and upper arm, initial encounter (principal); R07.81 Pleurodynia; M79.601 Pain in right arm; X58.XXXA Exposure to other specified factors, initial encounter
CPT/HCPCS: 71100; 73030; 73060

== ENCOUNTER 2021-06-24 14:14 | Outpatient (CLI) | payer MEDICARE, SELFPAY ==
--- NOTE | 2021-06-24 14:27 | XR_ITS ---
WS: [id number] Bone mineral density performed on a Room n House IDXA, 06/24/2021 Clinical data: POST MENOPAUSAL Comparison study: DEXA scan, 01/16/2015. Findings: The first 4 lumbar vertebral bodies demonstrated the bone mineral density of 1.278 g/cm2 for a young adult T score of 0.8. The bone mineral density of the lumbar spine has diminished slightly compared to the prior study. There is a minimal dextroscoliosis. Measurement of the left radius reveals a bone mineral density of 0.690 g/sq cm for a young adult T sc ore of -2.1 XR/XR DEXA axial skeleton* [id number] Impression: 1. The bone mineral density of the lumbar spine is normal. 2. The bone mineral density of the left radius shows osteopenia.
== END 2021-06-24 14:15 | disposition home or self-care (01) ==
PROVIDERS: PCP Family Medicine; Visit Provider Family Medicine
DX: Z78.0 Asymptomatic menopausal state (principal); M85.88 Other specified disorders of bone density and structure, other site
CPT/HCPCS: 77080

== ENCOUNTER → 2021-08-16 17:54 | Outpatient (BNVA) | payer MEDICARE, SELFPAY | PROVIDERS: PCP Family Medicine; Visit Provider Family Medicine | DX: S62.347A Nondisplaced fracture of base of fifth metacarpal bone, left hand, initial encounter for closed fracture (principal); W19.XXXA Unspecified fall, initial encounter; M19.042 Primary osteoarthritis, left hand | CPT/HCPCS: 73130 ==

== ENCOUNTER 2021-08-19 15:06 | Outpatient (CLI) | payer MEDICARE, SELFPAY | END 2021-08-19 15:07 | disposition home or self-care (01) | LOC: SPT 15:10 | PROVIDERS: PCP Family Medicine; Visit Provider Orthopaedic Surgery | DX: Z46.89 Encounter for fitting and adjustment of other specified devices (principal); S62.308A Unspecified fracture of other metacarpal bone, initial encounter for closed fracture; X58.XXXA Exposure to other specified factors, initial encounter | CPT/HCPCS: 97760; L3984 ==

== ENCOUNTER → 2021-09-17 10:16 | Outpatient (BNVA) | payer MEDICARE, SELFPAY | PROVIDERS: PCP Family Medicine; Visit Provider Orthopaedic Surgery | DX: S62.308D Unspecified fracture of other metacarpal bone, subsequent encounter for fracture with routine healing (principal); X58.XXXD Exposure to other specified factors, subsequent encounter | CPT/HCPCS: 73130 ==

== ENCOUNTER → 2021-12-18 10:12 | Outpatient (BNVA) | payer MEDICARE, SELFPAY | PROVIDERS: PCP Family Medicine; Visit Provider Internal Medicine Cardiovascular Disease | DX: H81.01 Meniere's disease, right ear (principal); I10 Essential (primary) hypertension; Z87.891 Personal history of nicotine dependence; I48.91 Unspecified atrial fibrillation | CPT/HCPCS: 99214 ==

== ENCOUNTER 2021-12-19 12:26 | Outpatient (CLI) | payer MEDICARE, SELFPAY ==
--- NOTE | 2021-12-19 12:40 | MR_ITS ---
WS: [id number] MRI LUMBAR SPINE NONCONTRAST HISTORY: LUMBAR BACK PAIN COMPARISON: None available. TECHNIQUE: Sagittal and axial multisequence imaging is submitted. Marked increase in thoracic kyphosis. Disc spaces are narrowed and desiccated throughout the cervical and thoracic spines. 5 lumbar type vertebral bodies are identified. The S1 vertebral body is lumbarized. This will be ind icated in the numbering pattern of the vertebral bodies on today's examination. Mild disc space desiccation and narrowing. There is a small amount of edema in the adjacent endplates of L5-S1. No fracture. Conus terminates normally at L1-2 disc level. L1-L2: Normal. L2-L3: Mild bilateral facet joint arthritis. Very mild foraminal narrowing. L3-L4: Mild annular disc bulging with moderate ligamentum flavum and facet joint arthritis. There is mild encroachment into the central canal by ligamentum flavum and facet arthritis. There is mild bila teral foraminal stenosis. Slightly greater encroachment on the LEFT L3 and L4 nerve roots. L4-L5: Mild annular disc bulge with marked ligamentum flavum and facet arthritis. There is encroachme nt into the thecal sac. Severe central and bilateral subarticular recess stenosis and mild foraminal stenosis. There is marked encroachment upon the traversing L5 nerve roots. L5-S1: Diffuse annular disc bulging with ligamentum flavum arthritis and facet arthritis. Disc encroa chment upon the S1 nerve roots bilaterally. There is disc bulging contacting both the L5 and S1 nerve roots. Moderate central, bilateral subarticular recess and foraminal stenosis. Slightly greater sten osis involving the RIGHT foramen. S1-S2: Small rudimentary disc. There is a small central disc protrusion with no significant stenosis. LEFT renal cyst measures 3.6 x 3.2 cm. MR/MR lumbar spine wo con* [id number] IMPRESSION: 1. Severe central, bilateral subarticular recess and mild foraminal stenosis at L4-5 with significant encroachment upon the L5 nerve roots. 2. Moderate central, bilateral subarticular recess and foraminal stenosis at L5 -S1. Greater encroachment and narrowing of the RIGHT foramen. 3. Mild foraminal stenosis at L3-4 with mild encroachment upon the LEFT nerve roots. 4. 5 lumbar type vertebral bodies and the S1 vertebral body is lumbarized. This is reflected in the vertebral body numbering pattern.
== END 2021-12-19 12:27 | disposition home or self-care (01) ==
PROVIDERS: PCP Family Medicine; Visit Provider Family Medicine
DX: I10 Essential (primary) hypertension (principal); I48.91 Unspecified atrial fibrillation; M48.061 Spinal stenosis, lumbar region without neurogenic claudication; M48.07 Spinal stenosis, lumbosacral region
CPT/HCPCS: 72148

== ENCOUNTER 2022-02-09 09:49 | Outpatient (CLI) | payer MEDICARE, SELFPAY ==
[2022-02-09 10:15] VITALS: BMI 29.5
--- NOTE | 2022-02-09 10:18 | NMCV_ITS ---
NM teodoro perf SPECT r/s* [id number] Jyotsna Schmid Age: 76 Gender: F : 1945 Exam Date: 02/09/2022 10:18 Ordering Phys: Gregory Healy MD ([email or web address]) Technologist: JIMMY Chong Exam Location: [facility] Indications: SHORTNESS OF BREATH STRESS TEST Please [facility] IMAGE PROTOCOL Rest/Stress 1 Lexiscan Day Radiopharmaceutical Dose (mCi) Administration Site Administered by Rest: Tc-99m 11.0 IV JIMMY Chong Sestamibi Stress:Tc-99m 32.6 IV JIMMY Garcia Sestamibi Rest: 09-Feb-2022 60 Discovery 630 Stress: 09-Feb-2022 30 Discovery 630 0.4mg Lexiscan. Images obtained in supine and prone position. SPECT RESULTS Technical Quality: Excellent Raw Data Analysis: Normal Image Corrections: No attenuation or motion correction applied Summed Stress Score: 3 Summed Rest Score: 1 Summed Difference Score: 2 PERFUSION FINDINGS A small area of decreased tracer uptake was noted in the apical anterior, apical lateral and LV apex. Some reversibility was noted in the anterior apical and LV apex, with the supine imaging. However with the prone imaging, Ts no severe reversibility was noted. FUNCTIONAL RESULTS (calculated via Gated SPECT) Stress Image LV EF (%): 61 Stress EDV (mL):116 TID: 1 Stress ESV (mL):45 FUNCTIONAL FINDINGS: LV wall motion analysis revealing no gross wall motion normalities. IMPRESSIONS 1. Myocardial perfusion imaging revealing a small area of reversible defect in the apical anterior wall and LV apex suggesting ischemia in the distribution of the left anterior descending artery. However because of the inconsistency with the prone imaging, the reliability is questionable. 2. Normal LV ejection fraction of 61%. 3. LV wall motion analysis revealing no gross wall motion normalities. 4. Normal LV volume. Clinical correlation is recommended Dr Gregory Healy MD FAC (Electronically Signed) Final Date: 09 Feb 2022 14:08 S
--- NOTE | 2022-02-09 10:18 | ECG_ITS ---
Test Date: 2022-02-09 Pat Name: Jyotsna Schmid Department: Room: Gender: Female Color Sprayer: Gretta Justina : 1945 Requested By: Gregory Healy Order Number: [id number] Lindsay MD: Gregory Healy M.D. Interpretive Statements NAME OF STUDY: LEXISCAN SESTAMIBI STRESS TEST INDICATION: Chest Pain, PROCEDURE: At the baseline, the EKG revealed atrial fibrillation with a diffuse nonspecific T wave changes. The baseline blood pressure was 160/91 mm Hg with a heart rate of 92 beats/min. Lexiscan was infused over a period of 20 seconds. A total of 0.4 milligrams of Lexiscan was infused. The stress phase was continued for a total of 5 minutes. Heart rate at the end of the stress phase was 96 with a blood pressure of 156/96. The EKG at the peak infusion revealed nonspecific ST-T changes. Sestamibi was injected 20 seconds after the Lexiscan infusion. Blood pressure at the end of the recovery phase was 155/94 with a heart rate of 92 per minute. CONCLUSION: 1. Nonspecific EKG changes with the LexiScan infusion 2. No LexiScan induced chest pain or cardiac arrhythmia 3. Normal blood pressure and heart rate response 4. Sestamibi/sestamibi perfusion scan pending; see separate report. Electronically Signed On 02-13-2022 22:36:42 CDT by Gregory Healy M.D. [email or web address]
[2022-02-09] MEDS: regadenoson 0.4 Mg/5 ml Syringe IVP (11:35)
[2022-02-09 11:38] VITALS: BP 155/94; PULSE 92
== END 2022-02-09 09:50 | disposition home or self-care (01) ==
LOC: CDL 09:52
PROVIDERS: PCP Family Medicine; Visit Provider Internal Medicine Cardiovascular Disease
DX: R94.31 Abnormal electrocardiogram [ECG] [EKG] (principal); R07.89 Other chest pain; R06.02 Shortness of breath
CPT/HCPCS: 78452; 93017; A9500; J2785

== ENCOUNTER → 2022-02-12 10:58 | Outpatient (BNVA) | payer MEDICARE, SELFPAY | PROVIDERS: PCP Family Medicine; Visit Provider Orthopaedic Surgery | DX: M48.062 Spinal stenosis, lumbar region with neurogenic claudication (principal); M47.9 Spondylosis, unspecified | CPT/HCPCS: 72110; 99204 ==

== ENCOUNTER → 2022-04-22 10:30 | Outpatient (BNVA) | payer MEDICARE, SELFPAY | PROVIDERS: PCP Family Medicine; Visit Provider Family Medicine | DX: E03.9 Hypothyroidism, unspecified (principal); I10 Essential (primary) hypertension; I48.91 Unspecified atrial fibrillation; I48.92 Unspecified atrial flutter; K29.70 Gastritis, unspecified, without bleeding | CPT/HCPCS: 80053; 80061; 84443; 85025 ==

== ENCOUNTER → 2022-06-17 10:45 | Outpatient (BNVA) | payer MEDICARE, SELFPAY | PROVIDERS: PCP Family Medicine; Visit Provider Internal Medicine Cardiovascular Disease | DX: I48.91 Unspecified atrial fibrillation (principal); I10 Essential (primary) hypertension; E03.9 Hypothyroidism, unspecified; R61 Generalized hyperhidrosis; F17.200 Nicotine dependence, unspecified, uncomplicated | CPT/HCPCS: 99214 ==

== ENCOUNTER 2022-07-07 09:22 | Outpatient (CLI) | payer MEDICARE, SELFPAY ==
--- NOTE | 2022-07-07 09:30 | CT_ITS ---
WS: [id number] CT ABDOMEN PELVIS TECHNIQUE: Contrast-enhanced CT of the abdomen and pelvis with coronal and sagittal reformatted image s. CLINICAL INFORMATION: LLQ PAIN COMPARISON: CT November 15, 2019 DLP: 1249.[address] scans at [facility] use at least one of these dose optimization techniques: automated e xposure control; mA and/or kV adjustment per patient size (includes targeted exams where dose is matc hed to clinical indication); or iterative reconstruction. FINDINGS: Normal appendix in the RIGHT lower quadrant. Diffuse fatty infiltration liver. Normal portal vein and splenic vein. Normal spleen. Small esophageal hiatal hernia. Cardiomegaly. Enlargement of the RIGHT heart. Mild bibasilar atelectasis. Splenic granulomas. Normal caliber abdominal aorta. Celiac and SMA are patent. Mild fatty atrophy of the pancreas. Normal portal vein and splenic vein. Normal gallbladder. Adrenal glands are normal. Normal renal parenchyma l enhancement. No hydronephrosis. LEFT upper pole renal cyst measuring 3.7 CM. Tiny fat-containing umbilical hernia. Bilateral THAs degrade images in the pelvis. Sigmoid colon cons tipation. Diverticulosis. No definite evidence of acute diverticulitis. No high-grade small or large bowel obstruction. Degenerative endplate-type changes mild chronic anterior wedging at T10-T11. CT/CT abdomen pelvis w con* [id number] IMPRESSION: 1. Images are significantly degraded in the pelvis due to bilateral THAs. Sigm oid constipation with diverticulosis. No definite evidence of diverticulitis co nsidering limitations. 2. Small esophageal hiatal hernia. 3. Normal caliber abdominal aorta. 4. Normal appendix in the RIGHT lower quadrant. 5. No hydronephrosis in either kidney. LEFT upper pole renal cyst measuring 3. 7 CM. 6. Diffuse fatty infiltration liver. 7. Enlarged RIGHT heart.
[2022-07-07] MEDS: iohexol 350 mg/mL 100 mL Btl PO (09:40)
[2022-07-07] MEDS: iohexol 350 mg/mL 100 mL Btl IV (11:03)
== END 2022-07-07 09:23 | disposition home or self-care (01) ==
PROVIDERS: PCP Family Medicine; Visit Provider Family Medicine
DX: R10.32 Left lower quadrant pain (principal); I51.7 Cardiomegaly; K44.9 Diaphragmatic hernia without obstruction or gangrene; K76.0 Fatty (change of) liver, not elsewhere classified
CPT/HCPCS: 74177

== ENCOUNTER → 2022-12-16 09:43 | Outpatient (BNVA) | payer MEDICARE, SELFPAY | PROVIDERS: PCP Family Medicine; Visit Provider Internal Medicine Cardiovascular Disease | DX: I48.91 Unspecified atrial fibrillation (principal); I11.0 Hypertensive heart disease with heart failure; I50.9 Heart failure, unspecified; H93.13 Tinnitus, bilateral; E03.9 Hypothyroidism, unspecified; R94.31 Abnormal electrocardiogram [ECG] [EKG]; F17.200 Nicotine dependence, unspecified, uncomplicated; Z79.01 Long term (current) use of anticoagulants | CPT/HCPCS: 99214 ==

== ENCOUNTER → 2023-06-02 09:55 | Outpatient (BNVA) | payer MEDICARE, SELFPAY | PROVIDERS: PCP Family Medicine; Referring Provider Dermatology; Visit Provider Specialist | DX: M19.011 Primary osteoarthritis, right shoulder; M19.012 Primary osteoarthritis, left shoulder | CPT/HCPCS: 73030; 99204 ==

== ENCOUNTER → 2023-06-30 09:50 | Outpatient (BNVA) | payer MEDICARE, SELFPAY | PROVIDERS: PCP Family Medicine; Visit Provider Internal Medicine Cardiovascular Disease | DX: R42 Dizziness and giddiness (principal); I48.91 Unspecified atrial fibrillation; I10 Essential (primary) hypertension; E03.9 Hypothyroidism, unspecified; F17.200 Nicotine dependence, unspecified, uncomplicated; Z79.01 Long term (current) use of anticoagulants | CPT/HCPCS: 99214 ==

== ENCOUNTER → 2023-07-15 11:24 | Outpatient (BNVA) | payer MEDICARE, SELFPAY | PROVIDERS: PCP Family Medicine; Visit Provider Internal Medicine Cardiovascular Disease | DX: R42 Dizziness and giddiness (principal); I48.91 Unspecified atrial fibrillation; I49.3 Ventricular premature depolarization | CPT/HCPCS: 93242 ==

== ENCOUNTER → 2023-12-20 09:08 | Outpatient (BNVA) | payer MEDICARE, SELFPAY | PROVIDERS: PCP Family Medicine; Visit Provider Anesthesiology Pain Medicine | DX: M54.16 Radiculopathy, lumbar region (principal); M48.062 Spinal stenosis, lumbar region with neurogenic claudication; M25.551 Pain in right hip | CPT/HCPCS: 99205 ==

== ENCOUNTER → 2023-12-30 13:32 | Outpatient (BNVA) | payer MEDICARE, SELFPAY | PROVIDERS: PCP Family Medicine; Visit Provider Anesthesiology Pain Medicine | DX: M54.16 Radiculopathy, lumbar region (principal); M48.062 Spinal stenosis, lumbar region with neurogenic claudication | CPT/HCPCS: 64483; 64484; J1100; J3490 ==

== ENCOUNTER → 2024-01-17 08:45 | Outpatient (BNVA) | payer MEDICARE, SELFPAY | PROVIDERS: PCP Family Medicine; Visit Provider Anesthesiology Pain Medicine | DX: M48.062 Spinal stenosis, lumbar region with neurogenic claudication (principal); M25.551 Pain in right hip | CPT/HCPCS: 99214 ==

== ENCOUNTER → 2024-01-19 11:02 | Outpatient (BNVA) | payer MEDICARE, SELFPAY | PROVIDERS: PCP Family Medicine; Visit Provider Internal Medicine Cardiovascular Disease | DX: R07.9 Chest pain, unspecified (principal); I48.91 Unspecified atrial fibrillation; I10 Essential (primary) hypertension; E03.9 Hypothyroidism, unspecified; F17.200 Nicotine dependence, unspecified, uncomplicated; R94.31 Abnormal electrocardiogram [ECG] [EKG] | CPT/HCPCS: 93005; 99214 ==

== ENCOUNTER 2024-02-04 11:12 | Outpatient (CLI) | payer MEDICARE, SELFPAY ==
--- NOTE | 2024-02-04 11:45 | MR_ITS ---
WS: [id number] MRI LUMBAR SPINE NONCONTRAST HISTORY: M54.16 - Radiculopathy, lumbar region COMPARISON: 12/19/2021 TECHNIQUE: Sagittal and axial multisequence imaging is submitted. Marked increase in thoracic kyphosis with disc space narrowing. As noted on the prior study there are 5 nonrib-bearing lumbar-type vertebral bodies. The S1 vertebral body is lumbarized also. This same numbering pattern will be utilized as on the prior exam. Increase in the lumbar lordosis. L4 anterolisthesis by less than 2 mm. No fractures or marrow edema. Mild disc space narrowing at L5-S1. Conus terminates normally at L1-2 disc level. L1-L2: Mild annular disc bulging and facet arthritis. Mild bilateral foraminal stenosis. L2-L3: Mild annular disc bulging with facet joint arthritis. Mild bilateral foraminal narrowing, LEFT greater than RIGHT. L3-L4: Marked annular disc bulging with marked facet and ligamentum flavum hypertrophy encroaching up on the thecal sac. Moderate central with severe bilateral subarticular recess and moderate foraminal stenosis, LEFT greater than RIGHT. L4-L5: Marked annular disc bulging with osteophytic ridging. Ligamentum flavum and facet arthritis. S evere central, bilateral subarticular recess and mild foraminal stenosis. L5-S1: Marked annular disc bulge with a central disc protrusion. Marked deforming the thecal sac. Lig amentum flavum and facet arthritis. Severe central, bilateral subarticular recess and moderate forami nal stenosis. S1-S2: Mild annular disc bulging. Mild disc contact on the S2 nerve roots. Mild annular disc bulge with a central disc protrusion. LEFT renal cyst 2.2 cm. MR/MR lumbar spine wo con* [id number] IMPRESSION: 1. Multilevel areas of stenosis. 2. L3-4: Moderate central with bilateral subarticular recess and foraminal isra nosis, LEFT greater than RIGHT. Mild progression since the prior exam. 3. L4-5: Severe central, bilateral subarticular recess and mild foraminal sten osis. No change. 4. L5-S1: Severe central, bilateral subarticular recess and moderate foraminal stenosis. Progression of stenosis since the prior study. 5. Facet joint arthritis most significant from L3-4 through L5-S1.
== END 2024-02-04 11:13 | disposition home or self-care (01) ==
LOC: RAD 11:13
PROVIDERS: PCP Family Medicine; Visit Provider Anesthesiology Pain Medicine
DX: M51.36 Other intervertebral disc degeneration, lumbar region (principal); M48.061 Spinal stenosis, lumbar region without neurogenic claudication; M99.63 Osseous and subluxation stenosis of intervertebral foramina of lumbar region; M25.78 Osteophyte, vertebrae; M47.896 Other spondylosis, lumbar region; M99.64 Osseous and subluxation stenosis of intervertebral foramina of sacral region; M47.898 Other spondylosis, sacral and sacrococcygeal region
CPT/HCPCS: 72148

== ENCOUNTER 2024-02-07 10:07 | Outpatient (CLI) | payer MEDICARE, SELFPAY ==
--- NOTE | 2024-02-07 | ECG_ITS ---
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 Interpretive Statements NAME OF STUDY: LEXISCAN SESTAMIBI STRESS TEST INDICATION: ABNORMAL EKG PROCEDURE: At the baseline, the EKG revealed atrial fibrillation with a ventricular rate of [address]-T changes. The baseline heart was 73 bpm with a blood pressue of 141/80 mm of Hg Lexiscan was infused over a period of 20 seconds. A total of 0.4 milligrams of Lexiscan was infused. The stress phase was continued for a total of 5 minutes. Heart rate at the end of the stress phase was 89 bpm with a blood pressure 136/84 mm of Hg. The EKG at the peak infusion revealed no significant changes. Sestamibi was injected 20 seconds after the Lexiscan infusion. Heart rate at the end of the recovery phase was 85 bpm with a blood pressure of 133/85 mm of Hg. CONCLUSION: 1. No significant EKG changes with the LexiScan infusion 2. No LexiScan induced chest pain or cardiac arrhythmia 3. Normal blood pressure and heart rate response 4. Sestamibi/sestamibi perfusion scan pending; see separate report. Electronically Signed On 02-21-2024 8:42:25 CDT by Gregory Healy M.D. [email or web address]
--- NOTE | 2024-02-07 10:24 | NMCV_ITS ---
NM teodoro perf SPECT r/s* [id number] Jyotsna Schmid Age: 78 Gender: F : 1945 Exam Date: 02/07/2024 10:24 Ordering Phys: Gregory Healy MD ([email or web address]) Technologist: JIMMY Chong Exam Location: [facility] Indications: ATHEROSCLEROTIC HEART DISEASE STRESS TEST [facility] IMAGE PROTOCOL Rest/Stress 1 Lexiscan Day Radiopharmaceutical Dose (mCi) Administration Site Administered by Rest: Tc-99m 10.8 IV JIMMY Garcia Sestamibi Stress:Tc-99m 32.4 IV JIMMY Garcia Sestamibi Rest: 07-Feb-2024 60 Discovery 630 Stress: 07-Feb-2024 30 Discovery 630 0.4mg Lexiscan. Images obtained in supine and prone position. SPECT RESULTS Technical Quality: Excellent Raw Data Analysis: Normal Image Corrections: No attenuation or motion correction applied Summed Stress Score: 3 Summed Rest Score: 2 Summed Difference Score: 1 PERFUSION FINDINGS Small to moderate area of minimal to moderately decreased tracer uptake was noted in the apical anterior and apical septal lateral regions. Subtle area reversibility was noted in the apical septal region. FUNCTIONAL RESULTS (calculated via Gated SPECT) Stress Image LV EF (%): 55 Stress EDV (mL):103 TID: 1.04 Stress ESV (mL):46 FUNCTIONAL FINDINGS: LV wall motion analysis revealing no gross wall motion abnormalities. IMPRESSIONS 1. Myocardial perfusion imaging revealing small to moderate area of minimal to moderately decreased tracer uptake involving the apical anterior and apical lateral regions segments with a subtle area reversibility suggesting myocardial scarring in the distribution of the distal left anterior descending artery/circumflex artery with a subtle area of preinfarction ischemia. 2. Normal LV ejection fraction of 55%. 3. Similar wall motion analysis revealing no significant wall motion normalities. 4. LV volume, upper limit of normal Compared to the study from 02/09/2022, there may not be a significant change Dr Gregory Healy MD FAC (Electronically Signed) Final Date: 07 Feb 2024 18:10 S
[2024-02-07 10:25] VITALS: BMI 30.2
[2024-02-07] MEDS: regadenoson 0.4 Mg/5 ml Syringe 0.400000000000000022 MG IVP (11:45)
[2024-02-07 12:05] VITALS: BP 138/82; PULSE 80
== END 2024-02-07 10:08 | disposition home or self-care (01) ==
LOC: CDL 10:08
PROVIDERS: PCP Family Medicine; Visit Provider Internal Medicine Cardiovascular Disease
DX: R94.39 Abnormal result of other cardiovascular function study (principal)
CPT/HCPCS: 36415; 78452; 93017; 96374; A9500; J2785

== ENCOUNTER → 2024-03-06 08:36 | Outpatient (BNVA) | payer MEDICARE, SELFPAY | PROVIDERS: PCP Family Medicine; Visit Provider Anesthesiology Pain Medicine | DX: M48.062 Spinal stenosis, lumbar region with neurogenic claudication (principal); M25.551 Pain in right hip | CPT/HCPCS: 99214 ==

== ENCOUNTER → 2024-07-27 10:06 | Outpatient (BNVA) | payer MEDICARE, SELFPAY | PROVIDERS: PCP Family Medicine; Visit Provider Internal Medicine Cardiovascular Disease | DX: I48.19 Other persistent atrial fibrillation (principal); I10 Essential (primary) hypertension; E03.9 Hypothyroidism, unspecified; R06.09 Other forms of dyspnea; Z87.891 Personal history of nicotine dependence | CPT/HCPCS: 99214 ==

== ENCOUNTER → 2024-09-28 13:18 | Outpatient (BNVA) | payer MEDICARE, SELFPAY | PROVIDERS: PCP Family Medicine; Visit Provider Specialist | DX: M19.011 Primary osteoarthritis, right shoulder (principal); M19.012 Primary osteoarthritis, left shoulder; M25.712 Osteophyte, left shoulder; M25.711 Osteophyte, right shoulder | CPT/HCPCS: 20610; 73030; 99214; J1100; J2795; J3301 ==

== ENCOUNTER 2025-01-16 14:44 | Outpatient (CLI) | payer MEDICARE, SELFPAY ==
--- NOTE | 2025-01-16 14:51 | XR_ITS ---
WS: [id number] DEXA (DUAL ENERGY X-RAY ABSORPTIOMETRY) Bone mineral density was performed using a Apollidon machine. HISTORY: POSTMENOPAUSAL COMPARISON: 06/24/2021 Lumbar spine BMD (L1-L4): 1.388 g/cm2 T score: 1.7 Z score: 2.5 Left forearm BMD: 0.632 g/cm2. T score: -2.8 Z score: -0.2 Compared to the prior study from 06/24/2021. Lumbar spine bone mineral density has increased by 8.6%. Bilateral hips bone mineral density has decreased by 8.4%. XR/XR DEXA axial skeleton* [id number] IMPRESSION: OSTEOPOROSIS based upon the WHO classification for females. Significant increase in bone mineral density of the lumbar spine. Significant decrease in bone mineral density in the hips.
== END 2025-01-16 14:45 | disposition home or self-care (01) ==
PROVIDERS: PCP Family Medicine; Visit Provider Family Medicine
DX: Z78.0 Asymptomatic menopausal state (principal); M81.0 Age-related osteoporosis without current pathological fracture
CPT/HCPCS: 77080

== ENCOUNTER → 2025-04-12 07:47 | Outpatient (BNVA) | payer MEDICARE, SELFPAY | PROVIDERS: PCP Family Medicine; Referring Provider Family Medicine; Visit Provider Specialist | DX: G62.9 Polyneuropathy, unspecified (principal); R20.2 Paresthesia of skin | CPT/HCPCS: 95909 ==

== ENCOUNTER → 2025-06-04 14:36 | Outpatient (BNVA) | payer MEDICARE, SELFPAY | PROVIDERS: PCP Family Medicine; Visit Provider Internal Medicine Cardiovascular Disease | DX: I48.91 Unspecified atrial fibrillation (principal); Z79.01 Long term (current) use of anticoagulants; I10 Essential (primary) hypertension; E03.9 Hypothyroidism, unspecified; R20.0 Anesthesia of skin | CPT/HCPCS: 99214 ==